=== PATIENT | female | born 1980 | race Caucasian/White ===

== ENCOUNTER → 2018-01-18 16:25 | Outpatient (CLI) | payer MEDICAID ==
[~2018-01-18 16:25] MED LIST: ACETAMINOPHEN500 M1 PO; ADIPEX-P37.5 M1 PO; ALEVE220 MG PO; PRILOSEC20 MG PO; TOPAMAX50 MG PO
== END | disposition home or self-care (01) ==
LOC: D.CT 16:25
DX: R51 Headache (principal)